=== PATIENT | male | born 1945 | race Caucasian/White ===

== ENCOUNTER 2018-09-27 12:22 | Inpatient (IN) | payer MEDICARE, OTHER ==
[~2018-09-27] VITALS: Ht 175.3 cm; Wt 90.8 kg
[2018-09-27] MEDS ORDERED: MVI, ADULT NO.4 WITH VIT K 10 ML, FOLIC ACID SYRINGE for ER 1 MG, THIAMINE INJ 100 MG i... IV ONE ×4 (12:45)
[2018-09-27 12:53] LABS: BASO % 0 % (0-3); EOS % 0 % (0-3); HEMATOCRIT 31.5 % (39.0-53.0); HEMOGLOBIN 10.8 g/dL (13.0-17.5); LYMPH # 0.5 x10^3/uL (1.0-4.8); LYMPH % 12 % (24-48); MEAN CORPUSCULAR HEMOGLOBIN 32 pg (25-35); MEAN CORPUSCULAR HGB CONC 34 g/dL (31-37); MEAN CORPUSCULAR VOLUME 94 fL (79-100); MONO # 0.2 x10^3/uL (0.0-1.1); MONO % 4 % (0-9); NEUT # 3.3 x10^3uL (1.8-7.7); NEUT % 83 % (31-73); PLATELET COUNT 29 x10^3/uL (140-400); RED BLOOD COUNT 3.34 x10^6/uL (4.30-5.70); RED CELL DISTRIBUTION WIDTH 17.8 % (11.5-14.5)
--- NOTE | 2018-09-27 12:58 | PHYS DOC ---
Past History Past Medical History: Alcoholism, CAD, Diabetes, High Cholesterol, Hypertension Past Surgical History: Other Alcohol Use: Heavy Additional Alcohol Information: 1 quart - 1 gallon vodka per day Drug Use: Marijuana Adult General Chief Complaint Chief Complaint: WITHDRAWL HPI HPI 73-year-old male presents with nausea, vomiting, and diarrhea. The patient states that this all started this morning. He is concerned because he is a heavy alcohol drinker. His last drink was last night. The patient developed diffuse, crampy abdominal pain after the vomiting. He is not sure if there is been any blood in it. He denies fever or chills. Review of Systems Review of Systems Constitutional: Denies fever or chills [] Eyes: Denies change in visual acuity, redness, or eye pain [] HENT: Denies nasal congestion or sore throat [] Respiratory: Denies cough or shortness of breath [] Cardiovascular: No additional information not addressed in HPI [] GI: Diffuse abdominal pain, nausea, vomiting, diarrhea [] : Denies dysuria or hematuria [] Musculoskeletal: Denies back pain or joint pain [] Integument: Denies rash or skin lesions [] Neurologic: Denies headache, focal weakness or sensory changes [] Endocrine: Denies polyuria or polydipsia [] All other systems were reviewed and found to be within normal limits, except as documented in this note. Current Medications Current Medications Current Medications Medications (Trade) Dose Ordered Sig/Chano Start Time Stop Time Status Last Admin Dose Admin Multivitamins/ Minerals 10 ml/ Folic Acid 1 mg/ Thiamine HCl 100 mg/Sodium Chloride 1,011.1 ml @ 1,000 mls/ hr 1X ONCE 09/27/18 12:45 09/27/18 13:45 Allergies Allergies Allergies Coded Allergies Type Severity Reaction Last Updated Verified Penicillins Allergy Unknown 09/27/18 Yes Physical Exam Physical Exam Constitutional: Well developed, well nourished, no acute distress, non-toxic appearance. [] HENT: Normocephalic, atraumatic, bilateral external ears normal, oropharynx moist, no oral exudates, nose normal. [] Eyes: PERRLA, EOMI, conjunctiva normal, no discharge. [] Neck: Normal range of motion, no tenderness, supple, no stridor. [] Cardiovascular:Heart rate regular rhythm, no murmur [] Lungs & Thorax: Bilateral breath sounds clear to auscultation [] Abdomen: Bowel sounds normal, soft, diffuse mild tenderness, no masses, no pulsatile masses. [] Skin: Warm, dry, no erythema, no rash. [] Back: No tenderness, no CVA tenderness. [] Extremities: No tenderness, no cyanosis, no clubbing, ROM intact, no edema. [] Neurologic: Alert and oriented X 3, normal motor function, normal sensory function, no focal deficits noted. [] Psychologic: Affect normal, judgement normal, mood normal. [] Current Patient Data Vital Signs Vital Signs Date Time Temp Pulse Resp B/P (MAP) Pulse Ox O2 Delivery O2 Flow Rate FiO2 09/27/18 12:31 99.0 94 12 95 Room Air EKG EKG [] Radiology/Procedures Radiology/Procedures [] Course & Med Decision Making Course & Med Decision Making Pertinent Labs and Imaging studies reviewed. (See chart for details) The patient's labs are remarkable for an elevated BUN/creatinine. We have given the patient fluids. The rest of his labs are unremarkable. We have controlled his vomiting with Zofran. The patient is likely having complications from his marijuana, benzos, and alcohol use. He was positive for all 3 of these on his urine drug screen. The patient has had some further vomiting in the ED. I have given a total of 8 mg of Zofran. He is feeling rather weak and looks ill. I do not believe that he could take care of himself at home. I will admit him to the hospital. I discussed the patient with Dr. Kenney and he has accepted the patient for admission. The patient initially made a statement to the nurse about wanting to drink himself to . Further discussion with the patient directly asked him if he wants to quit suicide. He stated that he does not. He does not want to . He does not have a plan. [] Dragon Disclaimer Dragon Disclaimer This electronic medical record was generated, in whole or in part, using a voice recognition dictation system. Departure Departure: Impression: Primary Impression: Alcoholism /alcohol abuse Additional Impressions: Marijuana abuse Abdominal pain Vomiting Disposition: ADMITTED INPATIENT Admitting Physician: Sivan Kenney Condition: STABLE Patient Instructions: Alcohol and Drug Addiction, Finding Treatment, Nausea and Vomiting, [id number] Scripts Ondansetron (ONDANSETRON ODT) 4 Mg Tab.rapdis 1 TAB PO PRN Q6-8HRS PRN for VOMITING, #16 TAB Prov: KASH KNAPP DO 09/27/18 Problem Qualifiers Additional Impressions: Abdominal pain Abdominal location: generalized Qualified Codes: R10.84 - Generalized abdominal pain Vomiting Vomiting type: unspecified Vomiting Intractability: non-intractable Nausea presence: with nausea Qualified Codes: R11.2 - Nausea with vomiting, unspecified KASH KNAPP DO September 27, 2018 12:57
[2018-09-27 13:00] LABS: ALBUMIN 3.9 g/dL (3.4-5.0); CREATININE 1.7 mg/dL (0.7-1.3); GFR 39.8; POTASSIUM 3.9 mmol/L (3.5-5.1); TOTAL BILIRUBIN 1.3 mg/dL (0.2-1.0)
[2018-09-27] MEDS ORDERED: ONDANSETRON PF 4 MG/2 ML VIAL. IV ONE ×2 (13:00→14:30)
[2018-09-27 13:07] LABS: BARBITURATES NEG (NEG); BENZODIAZEPINES POS (NEG); CANNABINOIDS POS (NEG); COCAINE NEG (NEG); METHADONE NEG (NEG); OPIATES NEG (NEG); PHENCYCLIDINE NEG (NEG)
[2018-09-27 13:13] LABS: COLOR,URINE AMBER
[2018-09-27 13:14] LABS: AMPHETAMINE/METHAMPHETAMINE NEG (NEG); BACTERIA,URINE 0 /HPF (0-FEW); BILIRUBIN,URINE NEG (NEG); CLARITY,URINE CLEAR; GLUCOSE,URINE NEG (NEG); NITRITE,URINE NEG (NEG); RBC,URINE 0 /HPF (0-2); SQUAMOUS EPITHELIAL CELL,UR OCC /LPF; UROBILINOGEN,URINE 0.2 mg/dL (0.2 mg/dL); WBC,URINE 0 /HPF (0-4)
[2018-09-27 13:20] LABS: HYPOCHROMIA SLIGHT; PLT ESTIMATE DECREASED (ADEQUATE)
[2018-09-27 13:21] LABS: ANISOCYTOSIS SLIGHT; MICROCYTOSIS MOD
[2018-09-27 13:22] LABS: POLYCHROMASIA SLIGHT
[2018-09-27 13:23] LABS: OVALOCYTES OCC; TEAR DROP CELLS OCC
[2018-09-27] MEDS ORDERED: ONDA4TAB12 PO (14:18)
[2018-09-27 17:02] VITALS: BP 162/87
[2018-09-27] MEDS ORDERED: HALOPERIDOL LACT 5 MG/ML VIAL. IM PRN (18:30)
[2018-09-27] MEDS ORDERED: diphenhydrAMINE 50 MG/ML VIAL IVP PRN (18:30)
[2018-09-27] MEDS ORDERED: chlordiazePOXIDE HCL 25 MG CAPSULE PO PRN (18:30)
[2018-09-27] MEDS ORDERED: cloNIDine HCL 0.1 MG TABLET PO PRN (18:30)
[2018-09-27] MEDS ORDERED: LORazepam 1 MG TABLET PO PRN ×2 (18:30)
--- NOTE | 2018-09-27 19:40 | NUR ---
The patient, KIRK GARCIA, 73 y/o, M admitted by ELHAM SRIVASTAVA MD, was given written information regarding hospital policies, unit procedures and contact persons. Patient admitted to room 105 from the ED and arrived at approx. 1700 via EMS. Valuables were checked and left in room with patient. Vital signs assessed and patient oriented to the room. Dr. Srivastava here and has seen the pt. Orders received. Continue to monitor.
[2018-09-27 20:05] VITALS: BP 141/83
--- NOTE | 2018-09-27 22:15 | HP ---
ADMIT DATE: 09/27/2018 HISTORY OF PRESENT ILLNESS: The patient is a 73-year-old male patient, who came to the Emergency Room complaining of nausea, vomiting and diarrhea that started this morning. He is concerned because he is a heavy alcohol drinker. His last drink was last night. The patient developed diffuse, crampy abdominal pain after the vomiting. He is not sure if there has been any blood in it. He denied any fevers or chills. Denied any hematemesis. Denied any melena or hematochezia. He was evaluated in the Emergency Room. His lab work showed that he has normochromic normocytic anemia. He has also severe thrombocytopenia with the platelet count only 29,000. His chemistry showed that he has also elevated BUN and creatinine. His blood sugar was also high, but not fasting. His urinalysis showed that he has large amount of proteinuria, moderate amount of blood, but they are negative for nitrite, leukocyte esterase, no RBCs or WBCs and no bacteria. His toxic screen was positive for benzodiazepine, cannabinoids, and blood alcohol level was 113 and he was admitted with alcoholism, alcohol abuse, marijuana abuse, recurrent bouts of nausea, vomiting as well as abdominal pain. PAST MEDICAL HISTORY: Significant for type 2 diabetes mellitus, hypertension, hyperlipidemia, coronary artery disease, status post PCI with stent deployment, alcoholic liver disease, osteoarthritis, benign prostatic hypertrophy, morbid obesity with obstructive sleep apnea, on CPAP. PAST SURGICAL HISTORY: Significant for incision and drainage of what he calls spider bites on inner aspect of his right leg and right thigh. He also has bilateral cataract, esophagogastroduodenoscopy and colonoscopy as well as polypectomy. ALLERGIES: HE IS ALLERGIC TO PENICILLIN. MEDICATIONS: Unfortunately, he does not know his medication list, I think it is from the [place]. FAMILY HISTORY: He has one brother who is older at 75 and apparently has coronary artery disease, but generally healthy. His father because of alcoholism. Mother in her 40s. SOCIAL HISTORY: He is , has one son that he have not seen for almost 10 years. He smoked when he was in the [facility] for about 2 years, quit in the 1950s, he started drinking when he was in the [facility], but has started drinking heavily since 1968. He is now drinking half a gallon of vodka almost daily. 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 REVIEW OF SYSTEMS: The patient denied any blurring of vision, has bilateral cataracts. Denied any glaucoma or macular degeneration. Denied any earache. Did complain of tinnitus, but denied any sensorineural deafness. Denied any nosebleeds, stuffy nose or postnasal drip. Denied any sore throat, sore tongue, toothache, hoarseness of voice or difficulty swallowing. He did complain of nausea, vomiting as well as diarrhea. Denied any hematemesis, melena or hematochezia. Denied any dysuria, frequency or hematuria. He did have nocturia before, but apparently he was started on medication that cut down and he only wakes night once at night time. He denied any chest pain. Did complain of shortness of breath with exertion. Denied any orthopnea or paroxysmal nocturnal dyspnea. Denied any cough, phlegm or hemoptysis. Denied any chills, rigors or fever. PHYSICAL EXAMINATION: GENERAL: On arrival to the Emergency Room, the patient looked well and was clearly in no apparent respiratory distress, pale, but no jaundice, cyanosis, or thyromegaly. No jugular venous distension. No limb edema. VITAL SIGNS: His heart rate was 94, blood pressure was 137/73, temperature was 99, respiratory rate was 12 and oxygen saturation was 95%. HEAD, EYES, EARS, NOSE AND THROAT: Normocephalic, atraumatic. NECK: Supple. HEART: Showed normal first and second heart sounds. No gallop, rub or murmur. CHEST: Clear to auscultation. No crepitation or rhonchi. ABDOMEN: Distended, diffusely tender. There is no guarding or rigidity. No organomegaly. All hernial orifices intact. Bowel sounds normal. NEUROLOGIC: He is awake, alert, responding appropriately. All cranial nerves intact. He moves extremities without difficulty, although he is very tremulous. LABORATORY DATA: His lab work showed his white cell count to be 4000, hemoglobin 10.8, hematocrit 31, MCV 94 and platelet count 29,000 with normal manual differential. His chemistry showed a serum sodium 143, potassium 3.9, chloride 103, bicarbonate 22, anion gap of 18, BUN 33, creatinine 1.7, estimated GFR was 39 mL per minute. His glucose 155 and calcium was 9. Total bilirubin is 1.3. AST was 76. ALT and alkaline phosphatase normal. Total protein was 8, albumin was 3.9. Urinalysis essentially showed proteinuria and hematuria, but otherwise unremarkable. His toxic screen was positive for benzodiazepine, cannabinoids and alcohol. ASSESSMENT AND PLAN: The patient was admitted with alcoholism and alcohol withdrawal. He has severe thrombocytopenia. His platelet count is only 29,000. He has also normochromic normocytic anemia. His chemistry showed that he has also impaired kidney function with a BUN of 33, creatinine 1.7. His blood pressure was slightly elevated, probably because of the withdrawal, so we will start him on alcohol withdrawal protocol. Continue with the banana bag. We will check his magnesium and replenish it as needed. I will repeat all lab work tomorrow. Also check ammonia and prothrombin time. ELHAM SRIVASTAVA MD DR: SIVLIA/rachael JOB#: [id number] / [id number]
[2018-09-27 22:58] VITALS: BP 155/75
[2018-09-28 05:05] VITALS: BP 127/66
[2018-09-28 07:04] LABS: HEMATOCRIT 25.9 % (39.0-53.0); RED BLOOD COUNT 2.72 x10^6/uL (4.30-5.70); RED CELL DISTRIBUTION WIDTH 17.4 % (11.5-14.5)
[2018-09-28 07:13] LABS: ALBUMIN 3.1 g/dL (3.4-5.0); ALBUMIN/GLOBULIN RATIO 0.9 (1.0-1.7); CALCIUM 8.1 mg/dL (8.5-10.1); CREATININE 1.3 mg/dL (0.7-1.3); GFR 54.3; TOTAL PROTEIN 6.4 g/dL (6.4-8.2)
[2018-09-28 07:14] LABS: MAGNESIUM 1.5 mg/dL (1.8-2.4); POTASSIUM 3.4 mmol/L (3.5-5.1); TOTAL BILIRUBIN 1.4 mg/dL (0.2-1.0)
[2018-09-28 07:22] LABS: WHITE BLOOD COUNT 1.7 x10^3/uL (4.0-11.0)
[2018-09-28] MEDS: THIAMINE 100 MG TABLET. PO SCH (08:35)
[2018-09-28] MEDS: FOLIC ACID 1 MG TABLET PO SCH (08:35)
[2018-09-28] MEDS: MULTIVITAMIN with MINERAL TABLET. PO SCH (08:35)
[2018-09-28] MEDS: MVI, ADULT NO.4 WITH VIT K 10 ML, THIAMINE INJ 100 MG, FOLIC ACID INJ 1 MG in IV NORMAL... IV SCH ×4 (08:36)
[2018-09-28 11:05] VITALS: BP 152/69
[2018-09-28 13:08] LABS: HEMOGLOBIN 10.6 g/dL (13.0-17.5); RED BLOOD COUNT 3.25 x10^6/uL (4.30-5.70); RED CELL DISTRIBUTION WIDTH 17.7 % (11.5-14.5)
[2018-09-28 13:54] LABS: PLATELET COUNT 13 x10^3/uL (140-400)
[2018-09-28] MEDS: DEXAMETHASONE 4 MG TABLET PO SCH (14:00)
[2018-09-28] MEDS ORDERED: PHENYLEPH/MINERAL OIL/PETROLAT RECTAL OINTMENT 28GM TUBE. RC PRN (14:30)
[2018-09-28 14:49] VITALS: BP 137/80
[2018-09-28 15:03] LABS: ANISOCYTOSIS SLIGHT; HYPOCHROMIA PRESENT; MICROCYTOSIS PRESENT; PLT ESTIMATE DECREASED (ADEQUATE)
[2018-09-28] MEDS ORDERED: DEXTROSE 50% 25 GM / 50ML DISP.SYRIN. IV PRN (16:30)
[2018-09-28] MEDS ORDERED: INSULIN LISPRO 300 UNITS/3 ML INSULN.PEN. SQ SCH (17:00)
[2018-09-28] MEDS ORDERED: MELA1TAB33 PO (18:09)
[2018-09-28] MEDS ORDERED: LACT10SO PO (18:09)
[2018-09-28] MEDS ORDERED: IPRA4AER INH (18:09)
[2018-09-28] MEDS ORDERED: PROP20TA PO (18:09)
[2018-09-28 19:33] VITALS: BP 177/91
--- NOTE | 2018-09-28 19:54 | NUR ---
PT on exam stating, "If those people took my car or money, I'm going to kill them." PT is referring to people that lived with him and were moving out while he was in the hospital. PT further went on to state that he only had a few years left to live at his age anyway so it would not matter that he killed them. PT is on Q15 minute checks for SI. Will continue to monitor.
[2018-09-28] MEDS: INSULIN LISPRO 300 UNITS/3 ML INSULN.PEN. SQ SCH (22:18)
[2018-09-28 23:03] VITALS: BP 172/90
[2018-09-28 23:51] VITALS: BP 137/80
--- NOTE | 2018-09-29 05:59 | PN ---
DATE: 09/28/2018 SUBJECTIVE: The patient is sitting comfortably in his chair, eating his lunch comfortably in no apparent distress. He continues to have the shaking and unsteady on his feet; however, his lab work showed that he has dramatic drop in his white cell count and platelets from yesterday, white cell count was 4000, today is 1700 and his platelet count is 11,000 from 29,000. He denied any bleeding, any hemoptysis or epistaxis. Denied any hematemesis, melena or hematochezia. His H and H was somewhat stable from hemoglobin 10.8 down to 9 and hematocrit 31.5 to 25.9, however, is on IV fluid and might be dilutional. PHYSICAL EXAMINATION: GENERAL: When I examined him, he looked somewhat pale. No jaundice, cyanosis, or thyromegaly. No jugular venous distension. No limb edema. VITAL SIGNS: His heart rate was 90, blood pressure 152/69, temperature was 98.1, respiratory rate 20, and oxygen saturation was 91%. HEAD, EYES, EARS, NOSE AND THROAT: Normocephalic, atraumatic. NECK: Supple. HEART: Showed normal first and second heart sounds. No gallop, rub or murmur. CHEST: Clear to auscultation. No crepitation or rhonchi. ABDOMEN: Distended, soft, nontender. No guarding or rigidity. No organomegaly. All hernial orifices intact. Bowel sounds normal. NEUROLOGIC: He is awake, alert, responding appropriately. All cranial nerves intact. He moves extremities without difficulty, ambulates with a walker. His intake over the last 24 hours was incompletely recorded. LABORATORY DATA: This morning, his white cell count of 1700, hemoglobin 9, hematocrit 26, MCV 95, and platelet count of 11,000. His chemistry showed a serum sodium 142, potassium 3.4, chloride 105, bicarbonate 26, anion gap of 11, BUN 23, creatinine 1.3, estimated GFR was 54 mL per minute. His glucose was 85, calcium was 8.1, magnesium was 1.5. Total bilirubin and AST elevated. ALT and alkaline phosphatase were normal. Ammonia is 40. His total protein was 6.4, albumin was 3.1. His prothrombin time was 11.6, INR 1.2. Urinalysis is unremarkable and tox screen was positive for benzodiazepine, cannabinoid and alcohol. ASSESSMENT: 1. Alcohol intoxication, alcohol withdrawal syndrome. 2. Severe leukopenia and thrombocytopenia, probably alcoholic liver disease and hypersplenism. 3. Type 2 diabetes mellitus. 4. Hypertension. 5. Hyperlipidemia. 6. Coronary artery disease, status post percutaneous coronary intervention and stent deployment. 7. Benign prostatic hypertrophy. 8. Morbid obesity, obstructive sleep apnea, on CPAP. 9. Generalized osteoarthritis. PLAN: My plan is to continue with the banana bag. I checked his vitamin B12 level. I would consult ____ regarding any treatment, any need to have Neulasta or Epogen and we will decide on further management accordingly. ELHAM SRIVASTAVA MD DR: SILVIA/rachael JOB#: [id number] / [id number]
[2018-09-29 06:31] VITALS: BP 142/76
[2018-09-29] MEDS: DEXAMETHASONE 4 MG TABLET PO SCH (08:07)
[2018-09-29] MEDS: FOLIC ACID 1 MG TABLET PO SCH (08:07)
[2018-09-29] MEDS: THIAMINE 100 MG TABLET. PO SCH (08:07)
[2018-09-29] MEDS: MULTIVITAMIN with MINERAL TABLET. PO SCH (08:08)
[2018-09-29] MEDS: INSULIN LISPRO 300 UNITS/3 ML INSULN.PEN. SQ SCH ×4 (08:20→20:58)
[2018-09-29] MEDS: MVI, ADULT NO.4 WITH VIT K 10 ML, THIAMINE INJ 100 MG, FOLIC ACID INJ 1 MG in IV NORMAL... IV SCH ×4 (10:51)
[2018-09-29 11:15] VITALS: BP 160/90
[2018-09-29 15:05] LABS: HEMATOCRIT 31.3 % (39.0-53.0); RED BLOOD COUNT 3.33 x10^6/uL (4.30-5.70); RED CELL DISTRIBUTION WIDTH 17.1 % (11.5-14.5); WHITE BLOOD COUNT 4.1 x10^3/uL (4.0-11.0)
[2018-09-29 15:14] LABS: CALCIUM 8.9 mg/dL (8.5-10.1); CREATININE 1.4 mg/dL (0.7-1.3); GFR 49.8; POTASSIUM 3.4 mmol/L (3.5-5.1)
[2018-09-29 15:23] VITALS: BP 145/81
[2018-09-29 19:20] VITALS: BP 150/80
[2018-09-29] MEDS: chlordiazePOXIDE HCL 25 MG CAPSULE PO PRN ×2 (22:33→23:55)
[2018-09-30 00:20] VITALS: BP 158/84
[2018-09-30 05:53] VITALS: BP 183/76
[2018-09-30 07:52] LABS: HEMATOCRIT 28.3 % (39.0-53.0); HEMOGLOBIN 9.8 g/dL (13.0-17.5); RED BLOOD COUNT 2.97 x10^6/uL (4.30-5.70); RED CELL DISTRIBUTION WIDTH 17.4 % (11.5-14.5)
[2018-09-30 08:05] LABS: ALBUMIN 3.2 g/dL (3.4-5.0); ALBUMIN/GLOBULIN RATIO 0.9 (1.0-1.7); CALCIUM 8.4 mg/dL (8.5-10.1); CREATININE 1.3 mg/dL (0.7-1.3); GFR 54.3; POTASSIUM 3.7 mmol/L (3.5-5.1); TOTAL BILIRUBIN 0.9 mg/dL (0.2-1.0); TOTAL PROTEIN 6.8 g/dL (6.4-8.2)
[2018-09-30] MEDS: MVI, ADULT NO.4 WITH VIT K 10 ML, THIAMINE INJ 100 MG, FOLIC ACID INJ 1 MG in IV NORMAL... IV SCH ×4 (09:43)
[2018-09-30] MEDS: DEXAMETHASONE 4 MG TABLET PO SCH (09:43)
[2018-09-30] MEDS: FOLIC ACID 1 MG TABLET PO SCH (09:43)
[2018-09-30] MEDS: MULTIVITAMIN with MINERAL TABLET. PO SCH (09:43)
[2018-09-30] MEDS: THIAMINE 100 MG TABLET. PO SCH (09:43)
[2018-09-30] MEDS: INSULIN LISPRO 300 UNITS/3 ML INSULN.PEN. SQ SCH ×3 (09:49→17:23)
--- NOTE | 2018-09-30 10:13 | RAD ---
Abdominal ultrasound, 09/30/2018: HISTORY: Thrombocytopenia, hepatitis C The gallbladder is within normal limits in size. There is no sonographic evidence of cholelithiasis. The gallbladder cardoso are not thickened. The common hepatic duct measures 4-5 mm which is within normal limits. Liver measures 19.4 cm in craniocaudad extent at the level the right lobe. The hepatic echogenicity is mildly increased. No hepatic mass is seen. The pancreas was obscured by overlying bowel. The visualized portions of the abdominal aorta and inferior vena cava are unremarkable. The spleen is enlarged measuring 17 cm in length. There is a 2.5 cm simple cyst in the right kidney. There is a 3.2 cm simple cyst in the lower pole the left kidney as well as 2 additional smaller cysts. There is no evidence of hydronephrosis. No free fluid is evident in the abdomen. IMPRESSION: 1. Mildly increased hepatic echogenicity raising the possibility of hepatic steatosis. 2. Mild splenomegaly. 3. Bilateral renal cysts. 4. No evidence of ascites. Electronically signed by: Gabe Mir MD (09/30/2018 10:10 AM) [facility]
[2018-09-30 11:24] VITALS: BP 142/80
[2018-09-30 15:36] VITALS: BP 157/90
--- NOTE | 2018-09-30 15:52 | PN ---
DATE: 09/29/2018 SUBJECTIVE: The patient is sitting on the edge of the bed, in no apparent distress. He continued to complain of being shaky, very unsteady on his feet. PHYSICAL EXAMINATION: GENERAL: When I examined him, he looked well and was clearly in no apparent distress. He was slightly pale, but no jaundice, cyanosis, or thyromegaly. No jugular venous distension. No limb edema. VITAL SIGNS: His heart rate was 90, blood pressure 145/81, temperature was 97.9, respiratory rate 20, and oxygen saturation was 97%. HEAD, EYES, EARS, NOSE, AND THROAT: Showed normocephalic, atraumatic. NECK: Supple. HEART: Showed normal first and second heart sounds with no gallop, rub, or murmur. CHEST: Clear to auscultation. No crepitation or rhonchi. ABDOMEN: Distended, soft, nontender. No guarding or rigidity. No organomegaly. All hernial orifices were intact. Bowel sounds normal. NEUROLOGIC: He was awake, alert, responding appropriately. All cranial nerves intact. He moved extremities without difficulty, however he was extremely unsteady on his feet. His intake over the last 24 hours was 2300, output was 1950. LABORATORY DATA: His lab work as recommended by software quality tester yesterday showed his prothrombin time was 10.8, INR 1.1, aPTT was 24, and serum fibrinogen was 211. D-dimer was 1.48. His white cell count this morning was 4100, hemoglobin 11, hematocrit 31, MCV 94, and platelet count continued to be extremely low at 13,000. His chemistry showed serum sodium 138, potassium 3.4, chloride 101, bicarbonate 26, anion gap of 11, BUN 23, creatinine 1.4, estimated GFR was 49 mL per minute, his glucose 173, calcium was 8.9. Urinalysis was unremarkable. Toxic screen was positive for alcohol. ASSESSMENT: 1. Alcohol intoxication, alcohol withdrawal syndrome. 2. Severe leukopenia and thrombocytopenia, for which we started him on dexamethasone as per software quality tester's recommendation for possible immune thrombocytopenic purpura. His white cell count is better now at 4000, however platelet count continued to be extremely low. 3. Type 2 diabetes mellitus. 4. Hypertension. 5. Hyperlipidemia. 6. Coronary artery disease, status post percutaneous coronary intervention and stent deployment. 7. Benign prostatic hypertrophy. 8. Morbid obesity, obstructive sleep apnea, on CPAP. 9. Generalized osteoarthritis. PLAN: My plan is to continue with the banana bag. His serum ammonia was only 40. His vitamin B12 was 857, ruling that out as a possible cause. My plan is to arrange for him to have ultrasound tomorrow to evaluate for hepatosplenomegaly as well as ascites and we will repeat his lab work again tomorrow and we will contact software quality tester for further evaluation and treatment. ELHAM SRIVASTAVA MD DR: SILVIA/rachael JOB#: [id number] / [id number]
--- NOTE | 2018-09-30 19:57 | NUR ---
Discharge note Patient transferred to [facility] for hematology consult/ higher level of care. All belongings sent with patient. Report called to Citlali BRADEN. Patient departed unit on gurney with EMS.
--- NOTE | 2018-09-30 23:26 | DS ---
DATE OF DISCHARGE: 09/30/2018 TRANSFER SUMMARY HISTORY OF PRESENT ILLNESS: The patient is a 73-year-old male patient, who was admitted with complaint of nausea, vomiting, diarrhea started the day of admission, he is a heavy alcohol drinker and when he was evaluated in the Emergency Room, his lab work showed he has thrombocytopenia with a platelet count of 29,000. His blood alcohol level when he came was 113. The patient was put on alcohol withdrawal protocol and the next day, his platelet count has dropped down further from 29,000-11,000. I spoke with Dr. Sigrid Carl, who recommended doing the DIC panel and also checking his vitamin B12 and ultrasound abdomen and we did start him empirically on dexamethasone 40 mg once a day for 4 days. Unfortunately, his platelet count only continued to drop down and today they came down to 10,000. Unfortunately, [facility] and I spoke with Dr. Cohn, who kindly agreed to see him as an outpatient that the patient has no car and finally, a decision was made to transfer him to [facility], as Dr. Cohn stated that the patient will need a bone marrow biopsy to find out why his platelet counts are so low. Likely, he has so far showed no evidence of bleeding. PHYSICAL EXAMINATION: GENERAL: When I examined him this afternoon, he looked pale, but no jaundice, cyanosis, or thyromegaly. No jugular venous distension. No limb edema. VITAL SIGNS: His heart rate was 73, blood pressure was 157/90, temperature was 98.1, respiratory rate 20, and oxygen saturation was 98%. HEAD, EYES, EARS, NOSE AND THROAT: Showed normocephalic, atraumatic. NECK: Supple. HEART: Showed normal first and second heart sounds. No gallop, rub or murmur. CHEST: Clear to auscultation. No crepitation or rhonchi. ABDOMEN: Distended, soft, nontender. No guarding or rigidity. No organomegaly. All hernial orifice intact. Bowel sounds normal. NEUROLOGIC: He was awake, alert, responding appropriately. He is less tremulous and more steady on his feet. His intake over the last 24 hours was 2300, output was 1950. LABORATORY DATA: His lab work this morning showed a white cell count of 3100, hemoglobin 9.8, hematocrit 28, MCV 95, and platelet count of 10,000. His chemistry showed a serum sodium 136, potassium 3.7, chloride 99, bicarbonate 27, anion gap of 10, BUN of 26, creatinine 1.3, estimated GFR was 54 mL per minute. His glucose 363, calcium was 8.4. Total bilirubin, AST, ALT, alkaline phosphatase were normal. His total protein was 6.8, albumin 3.1. Prothrombin time was 10.8, INR 1.1, aPTT was 24. Fibrinogen was 211 and D-dimer was 1.48 mg/dL. We did the CT scan of the abdomen and pelvis, which basically showed that there is no sonographic evidence of cholelithiasis. The gallbladder wall is not thickened. Common hepatic duct measures 45 mm, which is within normal range. Liver measures about 19.4 cm in craniocaudal extent that with at the level of the right lobe. The hepatic ____ is mildly increased. No hepatic mass is seen. The pancreas was obscured by the overlying bowel. The visualized portion of the abdominal aorta, inferior vena cava are unremarkable. The spleen is enlarged, measuring about 17 cm in length. There is a 2.5 cm simple cyst in the right kidney and there is also 3.2 cm simple cyst in the lower pole of the left kidney. There is no evidence of hydronephrosis. No free fluid is evident in the abdomen. DISCHARGE MEDICATIONS: He was transferred to [facility] to continue on insulin sliding scale using Humalog insulin. He is on Preparation-H applied topically every 4 hours, dexamethasone 40 mg daily with breakfast, multivitamin 1 tablet once a day, thiamine 100 mg once a day, folic acid 2 mg daily. He is on a banana bag and daily lorazepam. He is also on alcohol withdrawal protocol. FINAL DISCHARGE DIAGNOSES: 1. Alcohol intoxication, alcohol withdrawal syndrome. 2. Severe leukopenia and thrombocytopenia without much response to the dexamethasone. 3. Type 2 diabetes mellitus. 4. Hypertension. 5. Hyperlipidemia. 6. Coronary artery disease, status post percutaneous coronary intervention with stent deployment. 7. Benign prostatic hypertrophy. 8. Morbid obesity, obstructive sleep apnea. 9. Generalized osteoarthritis. ELHAM SRIVASTAVA MD DR: SILVIA/rachael JOB#: [id number] / [id number]
[2018-10-03 12:05] LABS: WHITE BLOOD COUNT 3.1 x10^3/uL (4.0-11.0)
== END 2018-09-30 19:55 | disposition short-term general hospital (02) | DRG 813 ==
LOC: ER 12:22 → 1 SOUTH 15:15
PROVIDERS: ADMIT Internal Medicine; ATTEND Internal Medicine
DX: D69.6 Thrombocytopenia, unspecified (principal); F10.239 Alcohol dependence with withdrawal, unspecified; F10.229 Alcohol dependence with intoxication, unspecified; D64.9 Anemia, unspecified; D72.819 Decreased white blood cell count, unspecified; D73.1 Hypersplenism; E11.9 Type 2 diabetes mellitus without complications; E66.01 Morbid (severe) obesity due to excess calories; E78.00 Pure hypercholesterolemia, unspecified; E78.5 Hyperlipidemia, unspecified; F12.10 Cannabis abuse, uncomplicated; G47.33 Obstructive sleep apnea (adult) (pediatric); I10 Essential (primary) hypertension; I25.10 Atherosclerotic heart disease of native coronary artery without angina pectoris; K70.9 Alcoholic liver disease, unspecified; M15.9 Polyosteoarthritis, unspecified; N28.9 Disorder of kidney and ureter, unspecified; N40.0 Benign prostatic hyperplasia without lower urinary tract symptoms; Y90.5 Blood alcohol level of 100-119 mg/100 ml; Z82.49 Family history of ischemic heart disease and other diseases of the circulatory system; Z95.5 Presence of coronary angioplasty implant and graft; Z87.891 Personal history of nicotine dependence; Z68.29 Body mass index [BMI] 29.0-29.9, adult
CPT/HCPCS: 36415; 76700; 80048; 80053; 80307; 81001; 82140; 82607; 82947; 83735; 85025; 85027; 85049; 85379; 85384; 85610; 85730; 96365; 96366; 96375; 96376; G0480; J1815; J2060; J2405; J8540; 97110; 97530; 97535; 99285-25; J7030